=== PATIENT | male | born 1940 | race Native Hawaiian/Other Pacific Islander ===

== ENCOUNTER 2021-03-13 15:49 | Outpatient (CLI) | payer OTHER ==
[2021-03-13 16:26] LABS: PLATELET COUNT 138 K/uL (142-355)
[2021-03-13 16:35] LABS: POTASSIUM 4.3 mmol/L (3.6-5.2)
== END 2021-03-13 19:09 | disposition home or self-care (01) ==
LOC: EDBD 15:49 → RAD 15:49
PROVIDERS: ATTEND Nurse Practitioner Family
DX: U07.1 COVID-19 (principal)
CPT/HCPCS: 36415; 80053; 82550; 82553; 82728; 84484; 85027; 85610; 85652; 86140